=== PATIENT | male | born 1965 | race Caucasian/White ===

== ENCOUNTER → 2016-07-11 | Outpatient (CLI) | payer BC ==
[~2016-07-11] MED LIST: ADVIN25050 INH; ALBUAER2 INH; OXYC-57 PO
--- NOTE | 2016-07-11 10:15 | DIAGNOSTIC IMAGING REPORT ---
LUMBAR SPINE MRI HISTORY: LUMBAR DDD NUMBNESS BILATERAL LOWER EXT TECHNIQUE: Multiplanar multisequence MRI of the lumbar spine was performed without the use of contrast. COMPARISON: None. FINDINGS: For the purpose of the report the L5-S1 disc space will be located on axial image 23 of 26. Minimal dextroscoliosis of the lumbar spine. 2 mm of anterolisthesis of L3 on L4. Straightening of the lumbar spine. The conus terminus at the L1 level. No fractures within the lumbar spine. Mild disc space narrowing at L2-L3, L4-L5, and L5-S1. Moderate to space narrowing at L3-L4. Paraspinal soft tissues are unremarkable. Soft tissue edema adjacent to the L3-L4 left facets likely due to the long-standing degenerative change. L1-L2: Small broad-based posterior disc bulge with facet hypertrophy resulting in mild central canal and mild bilateral neural foraminal narrowing. L2-L3: Broad-based posterior disc bulge with a small left paracentral focal disc protrusion. This results in [id number] central canal and mild right and moderate left neural foraminal narrowing. The left paracentral disc protrusion compresses the transiting left L3 nerve roots. L3-L4: Broad-based posterior disc bulge with a left foraminal annular tear. In conjunction with the significant facet and ligamentum hypertrophy this results in severe central canal narrowing. The central canal measures 5 mm in AP diameter. There is also moderate right and moderate to severe left-sided neural foraminal narrowing. L4-L5: Broad-based posterior disc bulge with ligamentum and facet hypertrophy resulting in severe central canal narrowing. The central canal measures 6 mm in diameter. There is also moderate right and severe left neural foraminal narrowing. L5-S1: Tiny broad-based posterior disc bulge without significant central canal narrowing. There is mild right-sided neural foraminal narrowing. IMPRESSION: 1. Multilevel lumbar spondylosis as described above most pronounced at the L3-L4 and L4-L5 levels where there is severe central canal narrowing. 2. Straightening of the lumbar spine. 3. Minimal dextroscoliosis. Electronically signed by: Shin Cortez M.D. 07/11/2016 10:13 AM Dictated Date/Time: 07/11/2016 10:07 AM
== END | disposition home or self-care (01) ==
LOC: C.OPENMRI 08:51
PROVIDERS: ATTEND Family Medicine
DX: M51.36 Other intervertebral disc degeneration, lumbar region (principal); M47.896 Other spondylosis, lumbar region